=== PATIENT | female | born 1985 | race American Indian/Alaskan Native ===

== ENCOUNTER 2021-03-23 03:15 | Emergency (ER) | payer SELFPAY ==
[2021-03-23] MEDS ORDERED: Ondansetron 4 MG/2 ML SDV IM ONE (03:41)
[2021-03-23] MEDS ORDERED: Take Home: Ondansetron 4 MG Tab.DIS, 2 Tab Pack PO ONE (03:41)
--- NOTE | 2021-03-23 03:52 | EDM.PDOC ---
ED HPI GENERAL MEDICAL PROBLEM - General Chief Complaint: Gastrointestinal Problem Stated Complaint: intoxicated Time Seen by Provider: 03/23/21 03:35 Source of Information: Reports: Patient, Family (fiance) History Limitations: Reports: Other (has been drinking but answering questions well) - History of Present Illness INITIAL COMMENTS - FREE TEXT/NARRATIVE: Patient presents to the ED at 3 am for vomiting after drinking alcohol. She is accompanied by her fiance that she was out drinking with and her 14 year old son. Apparently she does not drink routinely but when she does she tends to drink too much. They were out drinking for about 4 hours and she had at least 6 alcoholic beverages, mostly hard liquor shots. Upon arrival home, her son noted that she did not look well and then she started vomiting. She has vomited at least 6 times in the last hour which prompted her fiance to bring her to the ED. She did eat earlier, but not able to keep water down now. Emesis is not blood of feculent. no abdominal pain. She is unsteady on her feet but able to walk, Can answer questions for interview without difficulty Onset: Today Duration: Hour(s): Associated Symptoms: Reports: Nausea/Vomiting Generalized Pain Score (Numeric/FACES): 2 Past Medical History [employer] History: Reports: Other (See Below) (cervical cancer ( scheduled for hysterectomy)) - Past Surgical History HEENT Surgical History: Reports: Adenoidectomy, Tonsillectomy Female Surgical History: Reports: Section, Tubal Ligation, Other (See Below) (colposcopy) Social & Family History - Family History Family Medical History: No Pertinent Family History - Tobacco Use Tobacco Use Status *Q: Never Tobacco User Tobacco Use Within Last Twelve Months: Vaping Second Hand Smoke Exposure: No - Alcohol Use Alcohol Use History: Yes Alcohol Use in Last Twelve Months: Yes Alcohol Use Frequency: Binges - Recreational Drug Use Recreational Drug Use: Yes Recreational Drug Type: Reports: Marijuana/Hashish (occasionally) ED ROS GENERAL - Review of Systems Review Of Systems: See Below Constitutional: Reports: No Symptoms. Denies: Fever, Chills, Diaphoresis HEENT: Reports: No Symptoms. Denies: Dental Pain, Hearing Loss, Rhinitis, Throat Swelling, Vertigo Respiratory: Reports: No Symptoms. Denies: Shortness of Breath, Cough Cardiovascular: Reports: No Symptoms. Denies: Chest Pain, Claudication, Dyspnea on Exertion, Palpitations Endocrine: Reports: No Symptoms GI/Abdominal: Reports: Nausea, Vomiting. Denies: Abdominal Pain, Black Stool, Bloody Stool, Diarrhea, Difficulty Swallowing : Reports: No Symptoms. Denies: Dysuria, Frequency Musculoskeletal: Reports: No Symptoms. Denies: Neck Pain, Leg Pain, Joint Pain, Joint Swelling Skin: Reports: No Symptoms. Denies: Bruising, Rash, Wound Neurological: Reports: Dizziness, Difficulty Walking (just tonight due to alcohol). Denies: Headache, Trouble Speaking Psychiatric: Reports: No Symptoms Hematologic/Lymphatic: Reports: No Symptoms ED EXAM, GENERAL - Physical Exam Exam: See Below Exam Limited By: No Limitations General Appearance: Alert, No Apparent Distress, Other (did vomit on the floor during triage, answers questions appropriately, protecting airway, following commands, cooperative) Eye Exam: Bilateral Eye: EOMI, Nystagmus, PERRL Ears: Normal External Exam, Normal Canal, Hearing Grossly Normal, Normal TMs Nose: Normal Inspection, Normal Mucosa, No Blood Throat/Mouth: Normal Inspection, Normal Lips, Normal Teeth, Normal Gums, Normal Oropharynx, Normal Voice Head: Atraumatic, Normocephalic Neck: Normal Inspection, Supple, Non-Tender, Full Range of Motion Respiratory/Chest: No Respiratory Distress, Lungs Clear, Normal Breath Sounds, No Accessory Muscle Use, Chest Non-Tender Cardiovascular: Normal Peripheral Pulses, Regular Rate, Rhythm, No Edema, No Murmur GI/Abdominal: Normal Bowel Sounds, Soft, Non-Tender, No Organomegaly, No Abnormal Bruit, No Mass Back Exam: Normal Inspection Extremities: Normal Inspection, Normal Range of Motion, Non-Tender, No Pedal Edema, Normal Capillary Refill Neurological: Alert, CN II-XII Intact, No Motor/Sensory Deficits, Abnormal Gait (slighty unsteady on feet, no ataxic, answers questions appropriately, moves all extremities without deficit, speech minimally slurred. ) Course - Vital Signs Last Recorded V/S: Last Vital Signs Temp 36.8 C 03/23/21 03:27 Pulse 77 03/23/21 03:27 Resp 12 03/23/21 03:27 BP 109/60 03/23/21 03:27 Pulse Ox 97 03/23/21 03:27 - Re-Assessments/Exams Free Text/Narrative Re-Assessment/Exam: 03/23/21 03:45 Patient appears intoxicated however not in any distress or concern for alcohol poisoning. Offered laboratory testing, IV medicaitons and fluid and patient and the firiver decline. Discussed their preference for treatment in the ER for vomiting after high alcohol consumption. They prefer Im Zofran and medication for home. Patient was given 4 mg of Zofran IM. Patient's son is 14 but never driven before. Anitha has been out drinking tonight and drove her here. Advised I could not let them drive home. He offers to register for a blood alcohol test. I informed him that I was not requiring that, but could not allow him to drive her home if he was out drinking tonight with her. We did offer to get a cab for him. Again offered to check her for medical issues, blood alcohol level or possibility of drug ingestion. THey both decline. She appears to have capacity to make this decision, is coherent, protecting her airway and following commands 03/23/21 04:10 Patient is feeling better, tolerating sips of fluid. discharge home. Again advise the fiance to not drive. Departure - Departure Time of Disposition: 04:06 Disposition: Home, Self-Care 01 Condition: Fair Clinical Impression: Alcohol intoxication, Vomiting - Discharge Information *PRESCRIPTION DRUG MONITORING PROGRAM REVIEWED*: Not Applicable *COPY OF PRESCRIPTION DRUG MONITORING REPORT IN PATIENT CHAR: Not Applicable Instructions: Alcohol Intoxication, [id number], Nausea and Vomiting, Adult, Binge-Drinking Information, Adult Additional Instructions: Do not drive a vehicle for at least 8 hours. You were offered medical evaluation in the form of labs, along with IV hydration and medications. You declined this. You were given an IM injection of Zofran. you are given zofran for home use, take one tablet every 8 hours as needed for nausea. Start with clear liquids and advance as tolerated. Sepsis Event Note (ED) - Focused Exam Vital Signs: Vital Signs Temp Pulse Resp BP Pulse Ox 03/23/21 03:27 36.8 C 77 12 109/60 97
== END 2021-03-23 04:30 | disposition home or self-care (01) ==
LOC: VM.ED 03:15
DX: F10.129 Alcohol abuse with intoxication, unspecified (principal); F17.290 Nicotine dependence, other tobacco product, uncomplicated
CPT/HCPCS: 96372; 99283; A9270-GY; J2405

== ENCOUNTER 2021-07-09 19:21 | Emergency (ER) | payer MEDICAID ==
--- NOTE | 2021-07-09 20:11 | EDM.PDOC ---
ED HPI GENERAL MEDICAL PROBLEM - General Chief Complaint: Lower Extremity Injury/Pain Stated Complaint: DROPPED GLASS ON FOOT Time Seen by Provider: 07/09/21 19:59 Source of Information: Reports: Patient History Limitations: Reports: No Limitations - History of Present Illness INITIAL COMMENTS - FREE TEXT/NARRATIVE: Patient comes in after dropping a glass on her left foot. Some bleeding. Has foot wrapped in several socks. No other complaints. Full ROM of foot. No other injuries. Onset: Today, Sudden Duration: Getting Worse Quality: Reports: Sharp Severity: Moderate Improves with: Reports: Cold Therapy, Medication, Rest Worsens with: Reports: Movement Associated Symptoms: Reports: No Other Symptoms Past Medical History [employer] History: Reports: Other (See Below) (cervical cancer ( scheduled for hysterectomy)) - Past Surgical History HEENT Surgical History: Reports: Adenoidectomy, Tonsillectomy Female Surgical History: Reports: Section, Tubal Ligation, Other (See Below) (colposcopy) Social & Family History - Family History Family Medical History: No Pertinent Family History ED ROS GENERAL - Review of Systems Review Of Systems: See Below Constitutional: Reports: No Symptoms HEENT: Reports: No Symptoms Respiratory: Reports: No Symptoms Cardiovascular: Reports: No Symptoms Endocrine: Reports: No Symptoms GI/Abdominal: Reports: No Symptoms : Reports: No Symptoms Musculoskeletal: Reports: Foot Pain (left middle toe bleeding at nailbed. No nail damage) Skin: Reports: No Symptoms Neurological: Reports: No Symptoms Psychiatric: Reports: No Symptoms Hematologic/Lymphatic: Reports: No Symptoms Immunologic: Reports: No Symptoms ED EXAM, SKIN/RASH Exam: See Below Exam Limited By: Other General Appearance: Alert, No Apparent Distress Extremities: Normal Inspection, Normal Range of Motion, Non-Tender, No Pedal Edema, Normal Capillary Refill Neurological: Alert, Oriented, CN II-XII Intact, Normal Cognition, Normal Gait, Normal Reflexes, No Motor/Sensory Deficits Psychiatric: Normal Affect, Normal Mood Skin: Warm, Dry, Wound/Incision (minimal abrasion/laceration around the proximal nail and cuticle) Lymphatic: No Adenopathy Departure - Departure Time of Disposition: 20:08 Disposition: Home, Self-Care 01 Condition: Good Clinical Impression: Foot laceration - Discharge Information *PRESCRIPTION DRUG MONITORING PROGRAM REVIEWED*: Not Applicable *COPY OF PRESCRIPTION DRUG MONITORING REPORT IN PATIENT CHAR: Not Applicable Instructions: Laceration Care, Adult Referrals: Jamie Son NP [Primary Care Provider] - Forms: ED Department Discharge Additional Instructions: keep clean and dry Follow up with primary as needed May apply vaseline or bacitracin as needed Call with any questions or concerns
== END 2021-07-09 20:08 | disposition home or self-care (01) ==
LOC: VM.ED 19:21
DX: S91.115A Laceration without foreign body of left lesser toe(s) without damage to nail, initial encounter (principal); W20.8XXA Other cause of strike by thrown, projected or falling object, initial encounter
CPT/HCPCS: 99282

== ENCOUNTER 2022-01-14 05:51 | Emergency (ER) | payer BC, MEDICAID ==
[2022-01-14] MEDS ORDERED: Albuterol/Ipratropium 3.0-0.5 MG/3 ML Neb Soln NEB ONE (05:56)
[2022-01-14 07:08] LABS: CORONAVIRUS COVID-19 NAA POSITIVE (NEGATIVE); RESPIRATORY SYNCYTIAL VIR NAA NEGATIVE (NEGATIVE)
[2022-01-14 07:12] LABS: CHLORIDE,CL 104 mmol/L (98-107); SODIUM,NA 140 mmol/L (136-145)
[2022-01-14 07:14] LABS: ANION GAP 13.2 mmol/L (5-15); ESTIMATED GFR 116 mL/min (>=60)
[2022-01-14] MEDS ORDERED: Ketorolac 30 MG/ML SDV IM ONE (07:47)
== END 2022-01-14 08:03 | disposition home or self-care (01) ==
LOC: VM.ED 05:51
DX: U07.1 COVID-19 (principal); Z88.6 Allergy status to analgesic agent; Z88.2 Allergy status to sulfonamides; Z91.048 Other nonmedicinal substance allergy status
CPT/HCPCS: 0241U; 36415; 71045; 80053; 83735; 83880; 84100; 85025; 85379; 86140; 93005; 93010; 94640; 96372; 99284; J1885; J7620-GY

== ENCOUNTER 2022-01-15 02:05 | Emergency (ER) | payer BC ==
[2022-01-15 03:59] LABS: CHLORIDE,CL 107 mmol/L (98-107); SODIUM,NA 144 mmol/L (136-145)
[2022-01-15 04:00] LABS: ESTIMATED GFR 76 mL/min (>=60)
== END 2022-01-15 04:20 ==
LOC: VM.ED 02:05
DX: U07.1 COVID-19 (principal); E87.6 Hypokalemia
CPT/HCPCS: 36415; 80048; 83735; 85027; 85379; 96374; 99284-25

== ENCOUNTER 2022-01-17 01:52 | Emergency (ER) | payer BC, MEDICAID | END 2022-01-17 02:19 | disposition home or self-care (01) | LOC: VM.ED 01:52 | DX: U07.1 COVID-19 (principal); Z79.899 Other long term (current) drug therapy; Z86.16 Personal history of COVID-19; Z88.2 Allergy status to sulfonamides; Z88.6 Allergy status to analgesic agent; Z91.048 Other nonmedicinal substance allergy status | CPT/HCPCS: 99283 ==

== ENCOUNTER 2022-01-17 03:04 | Emergency (ER) | payer BC, MEDICAID | END 2022-01-17 03:45 | disposition left against medical advice (07) | LOC: VM.ED 03:04 | DX: U07.1 COVID-19 (principal); F41.9 Anxiety disorder, unspecified; F10.10 Alcohol abuse, uncomplicated; Z88.5 Allergy status to narcotic agent; Z88.2 Allergy status to sulfonamides; Z91.048 Other nonmedicinal substance allergy status; Z86.16 Personal history of COVID-19; Z79.899 Other long term (current) drug therapy | CPT/HCPCS: 99283 ==

== ENCOUNTER 2022-02-05 23:23 | Emergency (ER) | payer MEDICAID ==
[2022-02-05] MEDS ORDERED: Sodium Chloride 0.9% 10 ML Syringe FLUSH PRN (23:30)
[2022-02-06 00:17] LABS: CHLORIDE,CL 105 mmol/L (98-107); SODIUM,NA 144 mmol/L (136-145)
[2022-02-06 00:18] LABS: ANION GAP 14.4 mmol/L (5-15); ESTIMATED GFR 99 mL/min (>=60)
[2022-02-06] MEDS: LORazepam 1 MG Tab PO ONE (00:59)
== END 2022-02-06 00:26 | disposition home or self-care (01) ==
LOC: VM.ED 23:23
DX: F41.9 Anxiety disorder, unspecified (principal); F10.129 Alcohol abuse with intoxication, unspecified; Z88.5 Allergy status to narcotic agent; Z88.1 Allergy status to other antibiotic agents; Z91.048 Other nonmedicinal substance allergy status; Z79.899 Other long term (current) drug therapy; Z86.16 Personal history of COVID-19
CPT/HCPCS: 36415; 80053; 83735; 84100; 85025; 99284; A9270

== ENCOUNTER 2022-02-18 13:30 | Emergency (ER) | payer MEDICAID ==
[2022-02-18] MEDS: Sodium Chloride 0.9% 1,000 ML IV SCH (13:52)
[2022-02-18] MEDS: Pantoprazole 40 MG Vial IVPUSH ONE (13:54)
[2022-02-18 14:20] LABS: ANION GAP 14.5 mmol/L (5-15); CHLORIDE,CL 101 mmol/L (98-107); ESTIMATED GFR 86 mL/min (>=60); SODIUM,NA 140 mmol/L (136-145)
[2022-02-18] MEDS: Ondansetron 4 MG/2 ML SDV IVPUSH ONE (14:25)
== END 2022-02-18 14:57 | disposition home or self-care (01) ==
LOC: VM.ED 13:30
DX: R11.2 Nausea with vomiting, unspecified (principal); Z91.048 Other nonmedicinal substance allergy status; Z88.1 Allergy status to other antibiotic agents; Z86.16 Personal history of COVID-19; Z72.0 Tobacco use
CPT/HCPCS: 80053; 82150; 83690; 85025; 86140; 96361; 96374; 96375; 99283; 99284-25; C9113; J2405; J7030

== ENCOUNTER 2022-02-28 02:12 | Emergency (ER) | payer MEDICAID | END 2022-02-28 04:55 | disposition home or self-care (01) | LOC: VM.ED 02:12 | DX: S09.90XA Unspecified injury of head, initial encounter (principal); Z88.5 Allergy status to narcotic agent; Z91.048 Other nonmedicinal substance allergy status; Z88.1 Allergy status to other antibiotic agents; Z86.16 Personal history of COVID-19; W18.09XA Striking against other object with subsequent fall, initial encounter | CPT/HCPCS: 70450; 72125; 99283; 99284 ==

== ENCOUNTER 2022-06-20 17:56 | Emergency (ER) | payer MEDICAID | END 2022-06-20 19:00 | disposition home or self-care (01) | LOC: VM.ED 17:56 | DX: S62.326A Displaced fracture of shaft of fifth metacarpal bone, right hand, initial encounter for closed fracture (principal); Z88.6 Allergy status to analgesic agent; Z88.2 Allergy status to sulfonamides; Z91.048 Other nonmedicinal substance allergy status; W00.0XXA Fall on same level due to ice and snow, initial encounter | CPT/HCPCS: 73130-RT; 99283 ==

== ENCOUNTER 2022-08-31 14:26 | Emergency (ER) | payer MEDICAID ==
[2022-08-31 15:33] LABS: ANION GAP 15.7 mmol/L (5-15)
[2022-08-31] MEDS: Ondansetron 4 MG/2 ML SDV IVPUSH ONE (15:45)
[2022-08-31] MEDS: fentaNYL 50 MCG/ML SDV IVPUSH ONE (15:48)
[2022-08-31] MEDS: Iopamidol 612 MG/ML 100 ML Bottle IVPUSH ONE (16:08)
[2022-08-31] MEDS: Take Home: Ciprofloxacin 500 MG Tab, 2 Tab Pack PO ONE (17:23)
[2022-08-31] MEDS: Take Home: Ondansetron 4 MG Tab.DIS, 5 Tab Pack PO ONE (17:23)
== END 2022-08-31 17:53 | disposition home or self-care (01) ==
LOC: SUPCPDRO 14:26 → VM.ED 14:26
DX: N12 Tubulo-interstitial nephritis, not specified as acute or chronic (principal); Z88.5 Allergy status to narcotic agent; Z88.1 Allergy status to other antibiotic agents; Z91.048 Other nonmedicinal substance allergy status; Z86.16 Personal history of COVID-19
CPT/HCPCS: 74177; 80053; 81001; 81025; 85025; 87086; 87088; 87186; 96374; 96375; 99284; 99284-25; A9270-GY; J2405; J3010; Q0162; Q9967